=== PATIENT | female | born 1960 | race Caucasian/White ===

== ENCOUNTER → 2021-12-09 | Outpatient (CLI) | payer OTHER | LOC: LAB 14:10 | PROVIDERS: Internal Medicine | DX: D64.9 Anemia, unspecified (principal) | CPT/HCPCS: 36415; 85014; 85018; 86850; 86900; 86901; 86920 ==

== ENCOUNTER → 2021-12-10 | Outpatient (CLI) | payer OTHER | LOC: OPSV 08:00 | DX: D64.9 Anemia, unspecified (principal) | CPT/HCPCS: 36430; J7050 ==